=== PATIENT | male | born 1960 | race Hispanic/Latino ===

== ENCOUNTER → 2019-01-21 | Outpatient (CLI) | payer OTHER ==
--- NOTE | 2019-01-21 14:50 | Diagnostic Imaging Report ---
Exam: Testicular ultrasound. Clinical History: Spermatocele Findings: Sonographic evaluation of the testicles. Both testes are normal in echogenicity and size without intratesticular mass. RIGHT: The right testicle measures 3.9 x 2.1 x 3.0 cm. Homogeneous echotexture and normal blood flow. No intratesticular mass. Trace right hydrocele. No varicocele. The right epididymis measures 1.1 x 0.8 x 1.0 cm and contains a 6 x 5 x 6 mm spermatocele. LEFT: The left testicle measures 3.8 x 1.9 x 2.6 cm. Homogeneous echotexture and normal blood flow. No intratesticular mass. Trace left hydrocele. No varicocele. The left epididymis measures 1.1 x 1.0 x 0.9 cm. No left spermatocele. Impression: Homogeneous testicles with normal blood flow. 6 x 5 x 6 mm right spermatocele. Signed by: Paola Stevenson MD on 01/21/2019 2:46 PM
== END ==
LOC: US 13:39
PROVIDERS: ATTEND Urology
DX: N43.40 Spermatocele of epididymis, unspecified (principal); G89.29 Other chronic pain
CPT/HCPCS: 76870; 93976